=== PATIENT | female | born 1975 | race Caucasian/White ===

== ENCOUNTER → 2016-11-09 17:11 | Outpatient (CLI) | payer OTHER | END | disposition home or self-care (01) | LOC: D.MAMMO 13:30 | DX: Z12.31 Encounter for screening mammogram for malignant neoplasm of breast (principal) ==

== ENCOUNTER → 2017-11-16 16:45 | Outpatient (CLI) | payer OTHER | END | disposition home or self-care (01) | LOC: D.MAMMO 08:15 | DX: Z12.31 Encounter for screening mammogram for malignant neoplasm of breast (principal) ==

== ENCOUNTER 2018-06-20 09:01 | Emergency (ER) | payer OTHER ==
[~2018-06-20] VITALS: Ht 165.1 cm; Wt 63.5 kg
[2018-06-20 09:10] VITALS: Ht 165.1 cm; Wt 63.5 kg
[2018-06-20] MEDS ORDERED: PREVACID15 MG (09:10)
[2018-06-20] MEDS ORDERED: STERAPRED DS 1210 MG PO (10:51)
[2018-06-20] MEDS ORDERED: ULTRAM50 MG PO (10:51)
[2018-06-20] MEDS ORDERED: CYCLOBENZAPRINE10 MG PO (10:51)
[2018-06-20 11:23] VITALS: BP 119/72
== END 2018-06-20 11:23 | disposition home or self-care (01) ==
LOC: D.ER 09:01
DX: S13.4XXA Sprain of ligaments of cervical spine, initial encounter (principal); V43.52XA Car driver injured in collision with other type car in traffic accident, initial encounter; Y93.89 Activity, other specified; Y92.410 Unspecified street and highway as the place of occurrence of the external cause; M54.9 Dorsalgia, unspecified; R51 Headache

== ENCOUNTER → 2018-11-25 22:03 | Outpatient (CLI) | payer OTHER ==
[~2018-11-25 22:03] MED LIST: CYCLOBENZAPRINE10 MG PO; PREVACID15 MG; STERAPRED DS 1210 MG PO; ULTRAM50 MG PO
== END | disposition home or self-care (01) ==
LOC: D.MAMMO 15:30
PROVIDERS: ATTEND Nurse Practitioner Family
DX: Z12.31 Encounter for screening mammogram for malignant neoplasm of breast (principal)

== ENCOUNTER → 2018-12-06 17:42 | Outpatient (CLI) | payer OTHER | END | disposition home or self-care (01) | LOC: D.MAMMO 15:00 | PROVIDERS: ATTEND Family Medicine | DX: Z12.31 Encounter for screening mammogram for malignant neoplasm of breast (principal) ==

== ENCOUNTER 2018-12-29 09:00 | Outpatient (CLI) | payer OTHER | END 2018-12-29 10:00 | disposition home or self-care (01) | LOC: D.MAMMO 09:00 | PROVIDERS: ATTEND Family Medicine | DX: R92.8 Other abnormal and inconclusive findings on diagnostic imaging of breast (principal) ==